=== PATIENT | female | born 2000 | race Caucasian/White ===

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

== ENCOUNTER 2021-01-05 18:04 | Emergency (ER) | payer MEDICAID ==
[2021-01-05] MEDS ORDERED: Methocarbamol 500 MG Tab PO ONE (18:33)
[2021-01-05] MEDS ORDERED: hydrOXYzine HCl 25 MG Tab PO ONE (18:33)
--- NOTE | 2021-01-05 18:33 | EDM.PDOC ---
ED HPI GENERAL MEDICAL PROBLEM - General Chief Complaint: Neck Problem Stated Complaint: SHOULDER AND NECK PAIN LT SIDE, NAUSEA Time Seen by Provider: 01/05/21 18:19 Source of Information: Reports: Patient History Limitations: Reports: No Limitations - History of Present Illness INITIAL COMMENTS - FREE TEXT/NARRATIVE: Brittny is a 20-year-old female presenting to the ED for evaluation of left shoulder and left neck pain. The patient reports that she has had the pain for the last several weeks but over the last couple of days has become significantly worse. 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 The patient feels like she is the only one in the family that can drive and therefore takes on the tasks of not only being the KITCHEN OPERATOR for her father but also being the caregiver for the whole family. The patient does have a younger sister who is 17 that has her permit but does not have the ability to drive on her own yet. The patient does have a history significant for anxiety which has been lifelong. She does go to counseling and her counselor recommended that she get neuropsychiatric testing for being on the autism spectrum. The patient was started on sertraline 4 days ago for her anxiety. Today her mom wanted her to go to the store to get apples and the patient's anxiety started to build. The pain was so bad that the patient did not want to get out of bed today and due to the pain in her anxiety this continue to cycle up. Patient comes in now with moderate to severe pain in the left shoulder and left neck. When discussing her anxiety the patient is having problems with concentration and focus, she is only getting 5 to 6 hours of sleep at night because she cannot fall asleep before the wee hours of the morning because she needs to let her brain process her thoughts for the day, she has had no change in appetite and denies being a stress eater, and is quite withdrawn into her self talking with a very soft voice and acting quite timid. The patient has not engaged in cognitive behavioral therapy with her counselor yet. He denies any suicidal or homicidal thoughts. She denies any self-injurious behavior like cutting. - Related Data Allergies Allergy/AdvReac Type Severity Reaction Status Date / Time No Known Allergies Allergy Verified 01/05/21 18:18 Home Meds: Home Meds Acetaminophen/Caffeine [Excedrin Tension Headache] 1 tab PO Q8HR PRN 12/26/16 [History] Docusate Sodium [Doc-Q-Lace] 100 mg PO BID PRN 12/26/16 [History] Ranitidine [Zantac] 150 mg PO BID 12/26/16 [History] Omeprazole 20 mg PO DAILY 01/05/21 [History] buPROPion [buPROPion XL] 150 mg PO DAILY 01/05/21 [History] hydrOXYzine HCL [Atarax] 25 mg PO Q8H PRN #20 tab 01/05/21 [Rx] methocarbamoL [Methocarbamol] 500 mg PO QID PRN #20 tablet 01/05/21 [Rx] Past Medical History HEENT History: Reports: Impaired Vision Gastrointestinal History: Reports: Chronic Constipation Psychiatric History: Reports: Anxiety Dermatologic History: Reports: Psoriasis - Infectious Disease History Infectious Disease History: Reports: Chicken Pox - Past Surgical History Head Surgeries/Procedures: Reports: None HEENT Surgical History: Reports: None Cardiovascular Surgical History: Reports: None GI Surgical History: Reports: None Dermatological Surgical History: Reports: None Social & Family History - Family History HEENT: Reports: Impaired Vision Respiratory: Reports: Asthma OBGYN: Reports: Ectopic Musculoskeletal: Reports: Fibromyalgia Psychiatric: Reports: Anxiety, Depression Oncologic: Reports: Breast - Caffeine Use Caffeine Use: Reports: None ED ROS GENERAL - Review of Systems Review Of Systems: See Below Constitutional: Reports: No Symptoms HEENT: Reports: No Symptoms Respiratory: Reports: No Symptoms Cardiovascular: Reports: No Symptoms Endocrine: Reports: No Symptoms GI/Abdominal: Reports: No Symptoms : Reports: No Symptoms Musculoskeletal: Reports: Neck Pain (Shoulder left neck), Shoulder Pain, Muscle Stiffness (Left trapezius) Skin: Reports: No Symptoms Neurological: Reports: No Symptoms Psychiatric: Reports: Anxiety Hematologic/Lymphatic: Reports: No Symptoms Immunologic: Reports: No Symptoms ED EXAM, UPPER BACK/NECK PAIN - Physical Exam Exam: See Below Exam Limited By: No Limitations General Appearance: Alert, Anxious, Mild Distress Eye Exam: Bilateral Eye: EOMI, PERRL Throat/Mouth Exam: Normal Inspection, Normal Oropharynx, Normal Voice, No Airway Compromise Head Exam: Atraumatic, Normocephalic Neck Exam: Limited Range of Motion (Limited range of motion with turning the head towards the right causing strain of the paraspinal left sided muscles), Muscle Spasm (Left trapezius muscle), Paraspinous Muscle Tender (Left-sided), Tender Lateral (Significant tenderness with palpation over the left trapezius muscle). No: Spinous Processes Tender, Tender Midline Nexus Criteria: No: Posterior, Midline Cervical Tenderness, Evidence of Intoxication, Altered Level of Consciousness, Focal Neurological Deficit, Painfu l Distraction Injuries Back Exam: Normal Inspection, Full Range of Motion Extremities: Normal Inspection, Normal Range of Motion Neurologic: agitator operator II-XII nml As Tested, No Motor/Sensory Deficits, Alert, Oriented x 3 Psychiatric: Anxious, Depressed Mood, Other (Very withdrawn) Skin Exam: Normal Color, Warm/Dry Lymphatic: No Adenopathy Course - Vital Signs Last Recorded V/S: Last Vital Signs Temp 36.6 C 01/05/21 18:22 Pulse 110 H 01/05/21 18:22 Resp 16 01/05/21 18:22 BP 149/92 H 01/05/21 18:22 Pulse Ox 98 01/05/21 18:22 - Orders/Labs/Meds Meds: Medications Discontinued Medications Generic Name Dose Route Start Last Admin Trade Name Freq PRN Reason Stop Dose Admin Hydroxyzine HCl 25 mg 01/05/21 18:33 01/05/21 18:40 Hydroxyzine Hcl 25 Mg Tab PO 01/05/21 18:34 25 mg ONETIME ONE Administration Methocarbamol 500 mg 01/05/21 18:33 01/05/21 18:40 Methocarbamol 500 Mg Tab PO 01/05/21 18:34 500 mg ONETIME ONE Administration - Re-Assessments/Exams Free Text/Narrative Re-Assessment/Exam: 01/05/21 19:08 examination of the patient reveals that she has significant left- sided paraspinal and trapezius muscle spasm likely secondary to stress. The patient recently started on sertraline 4 days ago and has not had any therapeutic benefit yet for her anxiety and depression. She is not homicidal or suicidal. I did give her methocarbamol 500 mg and hydroxyzine 25 mg to both help with the muscle spasm and her anxiety. My plan is to continue this on an outpatient basis. I encouraged the patient to ice the trapezius muscle to reduce spasm. At this time I believe she is suitable for discharge. I recommend that she follow-up with her counselor to discuss cognitive behavioral therapy to better deal with her stressors in life. I did remind her that this is only temporary and things should get better. Indications to return to the ED were discussed and she was discharged in satisfactory condition. Departure - Departure Time of Disposition: 19:19 Disposition: Home, Self-Care 01 Clinical Impression: Stress reaction, Strain of cervical portion of left trapezius muscle, Generalized anxiety disorder - Discharge Information Instructions: Muscle Strain Referrals: PCP,None [Primary Care Provider] - Forms: ED Department Discharge Sepsis Event Note (ED) - Focused Exam Vital Signs: Vital Signs Temp Pulse Resp BP Pulse Ox 01/05/21 18:22 36.6 C 110 H 16 149/92 H 98 01/05/21 18:16 36.6 C 110 H 16 149/92 H 98 - Problem List & Annotations (1) Generalized anxiety disorder SNOMED Code(s): 36676665 Code(s): F41.1 - GENERALIZED ANXIETY DISORDER Status: Acute Priority: Medium Current Visit: Yes (2) Strain of cervical portion of left trapezius muscle SNOMED Code(s): 568288970 Code(s): S16.1XXA - STRAIN OF MUSCLE, FASCIA AND TENDON AT NECK LEVEL, INIT Status: Acute Priority: Medium Current Visit: Yes (3) Stress reaction SNOMED Code(s): 02884808 Code(s): F43.0 - ACUTE STRESS REACTION Status: Acute Priority: Medium Current Visit: Yes - Problem List Review Problem List Initiated/Reviewed/Updated: Yes
== END 2021-01-05 19:29 | disposition home or self-care (01) ==
LOC: JP.ED 18:04
DX: S16.1XXA Strain of muscle, fascia and tendon at neck level, initial encounter (principal); F41.1 Generalized anxiety disorder; F43.0 Acute stress reaction; Z79.899 Other long term (current) drug therapy; X50.0XXA Overexertion from strenuous movement or load, initial encounter
CPT/HCPCS: 99283; A9270